=== PATIENT | female | born 1985 | race Caucasian/White ===

== ENCOUNTER 2018-08-21 09:44 | Inpatient (IN) | payer MEDICAID ==
[2018-08-21] MEDS ORDERED: RINGERS SOLUTION,LACTATED 300 ML IV ONE (10:25)
[2018-08-21] MEDS ORDERED: DINOPROSTONE 10 MG VAGINAL INSERT.SR PV PRN (10:25)
[2018-08-21] MEDS ORDERED: OXYTOCIN/NORMAL SALINE 20 UNIT/1,000 ML RTUINJ IV PRN (10:25)
[2018-08-21 10:30] LABS: APPEARANCE,URINE CLOUDY; BILIRUBIN,URINE NEGATIVE (NEGATIVE); COLOR,URINE AMBER; GLUCOSE, URINE NEGATIVE (NEGATIVE); KETONES,URINE NEGATIVE (NEGATIVE); LEUKOCYTE ESTERASE,URINE TRACE (NEGATIVE); NITRITE,URINE NEGATIVE (NEGATIVE); PROTEIN,URINE 100 mg/dL (NEGATIVE); URINE SPECIFIC GRAVITY 1.025
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
[2018-08-21] MEDS ORDERED: DINOPROSTONE 10 MG VAGINAL INSERT.SR ONE ×2 (10:51→15:35)
[2018-08-21 11:38] LABS: URINE AMPHETAMINES SCREEN NEGATIVE; URINE BARBITURATES SCREEN NEGATIVE; URINE BENZODIAZEPINES SCREEN NEGATIVE; URINE COCAINE SCREEN NEGATIVE; URINE MARIJUANA (THC) SCREEN NEGATIVE; URINE METHADONE SCREEN NEGATIVE; URINE PHENCYCLIDINE SCREEN NEGATIVE
[2018-08-21 12:11] LABS: ABSOLUTE EOSINOPHILS # (AUTO) 0.1 10^3/uL (0.0-0.6); ABSOLUTE LYMPHOCYTES (AUTO) 1.3 10^3/uL (0.5-4.7); ABSOLUTE MONOCYTES (AUTO) 0.9 10^3/uL (0.1-1.4); BASOPHILS % (AUTO) 0.2 % (0-2); EOSINOPHILS % (AUTO) 0.8 % (0-6); HEMATOCRIT 35.3 % (36.0-47.0); HEMOGLOBIN 11.3 g/dL (12.0-15.5); LYMPHOCYTES % (AUTO) 9.1 % (13-45); MEAN CORPUSCULAR HGB CONC 32.1 g/dL (32.0-36.0); MEAN CORPUSCULAR VOLUME 78 fl (80-97); MONOCYTES % (AUTO) 6.5 % (3-13); PLATELET COUNT 323 10^3/uL (150-450); RED BLOOD COUNT 4.53 10^6/uL (3.72-5.28); RED CELL DISTRIBUTION WIDTH 15.9 % (11.5-14.0); SEGMENTED NEUTROPHILS % (AUTO) 83.4 % (42-78); TOTAL CELLS COUNTED % (AUTO) 100 %; WHITE BLOOD COUNT 14.4 10^3/uL (4.0-10.5)
[2018-08-21] MEDS ORDERED: DINOPROSTONE 10 MG VAGINAL INSERT.SR PV ONE (15:29)
[2018-08-21] MEDS ORDERED: PENICILLIN G-K 5 MILLION UNIT VIAL ONE ×2 (15:34→20:37)
[2018-08-21] MEDS: RINGERS SOLUTION,LACTATED 1,000 ML IV PRN (16:18)
[2018-08-21] MEDS ORDERED: PENICILLIN G-K 5 MILLION UNIT VIAL IV ONE (21:14)
[2018-08-21] MEDS: PENICILLIN G-K 5 MILLION UNIT VIAL IV SCH (21:20)
[2018-08-21] MEDS ORDERED: MISOPROSTOL 0.1 MG TABLET PO ONE (22:17)
[2018-08-21] MEDS ORDERED: MISOPROSTOL 0.1 MG TABLET PV ONE (22:19)
[2018-08-22] MEDS ORDERED: MISOPROSTOL 0.1 MG TABLET ONE ×2 (00:17→05:53)
[2018-08-22] MEDS ORDERED: PENICILLIN G-K 5 MILLION UNIT VIAL ONE ×2 (00:17→05:03)
[2018-08-22] MEDS: PENICILLIN G-K 5 MILLION UNIT VIAL IV SCH ×4 (00:45→14:40)
[2018-08-22] MEDS ORDERED: MISOPROSTOL 0.1 MG TABLET PO ONE (06:00)
[2018-08-22] MEDS ORDERED: MISOPROSTOL 0.1 MG TABLET PV ONE (06:00)
[2018-08-22] MEDS ORDERED: PHENYLEPHRINE HCL INJ/PF 10 MG/1 ML SDV ONE (13:26)
[2018-08-22] MEDS ORDERED: AZITHROMYCIN INJ 500 MG VIAL IV ONE (14:25)
[2018-08-22 18:49] LABS: ABSOLUTE EOSINOPHILS # (AUTO) 0.2 10^3/uL (0.0-0.6); ABSOLUTE LYMPHOCYTES (AUTO) 1.3 10^3/uL (0.5-4.7); ABSOLUTE NEUT (AUTO) 12.6 10^3/uL (1.7-8.2); BASOPHILS % (AUTO) 0.2 % (0-2); HEMATOCRIT 34.7 % (36.0-47.0); HEMOGLOBIN 11.2 g/dL (12.0-15.5); LYMPHOCYTES % (AUTO) 8.5 % (13-45); MEAN CORPUSCULAR HEMOGLOBIN 25.2 pg (27.0-33.4); MEAN CORPUSCULAR HGB CONC 32.3 g/dL (32.0-36.0); MEAN CORPUSCULAR VOLUME 78 fl (80-97); MONOCYTES % (AUTO) 6.6 % (3-13); PLATELET COUNT 313 10^3/uL (150-450); RED BLOOD COUNT 4.44 10^6/uL (3.72-5.28); SEGMENTED NEUTROPHILS % (AUTO) 83.7 % (42-78); TOTAL CELLS COUNTED % (AUTO) 100 %; WHITE BLOOD COUNT 15.1 10^3/uL (4.0-10.5)
[2018-08-22] MEDS ORDERED: CEFAZOLIN 2 GM/D5W RTU 2 GM/50 ML RTUPB IV ONE (19:51)
[2018-08-22] MEDS ORDERED: CEFAZOLIN 1 GM/D5W RTU 1 GM/50 ML RTUPB IV ONE (19:51)
[2018-08-22] MEDS ORDERED: CITRIC ACID/SODIUM CITRATE ORAL SOLN 15 ML UDCUP ONE (19:51)
[2018-08-22] MEDS ORDERED: OXYTOCIN 10 UNIT/ML VIAL ONE (19:59)
[2018-08-22] MEDS ORDERED: PROPOFOL INJ 200 MG/20 ML VIAL IV ONE (19:59)
[2018-08-22] MEDS ORDERED: FENTANYL CITRATE INJ/PF 100 MCG/2 ML AMPUL ONE ×2 (20:00→23:17)
[2018-08-22] MEDS ORDERED: ACETAMINOPHEN 1,000 MG/100 ML RTUPB IV ONE (20:00)
[2018-08-22] MEDS ORDERED: ONDANSETRON HCL INJ/PF 4 MG/2 ML SDV ONE (20:00)
[2018-08-22] MEDS ORDERED: DEXAMETHASONE SOD PHOSPHATE INJ 4 MG/1 ML VIAL ONE (20:00)
[2018-08-22] MEDS ORDERED: METHYLERGONOVINE MALEATE INJ/PF 0.2 MG/1 ML AMPULE ONE (20:00)
[2018-08-22] MEDS ORDERED: MIDAZOLAM 2 MG/2 ML INJ ONE (20:00)
[2018-08-22] MEDS ORDERED: EPINEPHRINE INJ/PF 1 MG/1 ML AMPULE ONE (20:01)
[2018-08-22] MEDS ORDERED: EPHEDRINE SULFATE INJ 50 MG/1 ML AMPULE ONE (20:09)
[2018-08-22] MEDS ORDERED: KETOROLAC TROMETHAMINE 60 MG/2 ML SDV ONE (20:13)
[2018-08-22] MEDS ORDERED: FENTANYL CITRATE INJ/PF 100 MCG/2 ML AMPUL IV PRN ×3 (20:57)
[2018-08-22] MEDS ORDERED: OXYCODONE-ACETAMINOPHEN 5-325 MG TABLET PO PRN ×3 (20:57→21:31)
[2018-08-22] MEDS ORDERED: ONDANSETRON HCL INJ/PF 4 MG/2 ML SDV IV PRN (20:57)
[2018-08-22] MEDS ORDERED: PROMETHAZINE HCL INJ 25 MG/1 ML VIAL IV PRN ×3 (20:57→21:31)
[2018-08-22] MEDS ORDERED: MEPERIDINE HCL/PF INJ 25 MG/1 ML DISP.SYRIN IV PRN (20:57)
[2018-08-22] MEDS ORDERED: DIPHENHYDRAMINE HCL 50 MG/ML VIAL IV PRN (20:57)
[2018-08-22] MEDS ORDERED: MORPHINE SULFATE 10 MG/ML INJ IV PRN (20:57)
[2018-08-22] MEDS ORDERED: DIPH/PERTUSS(ACELL)/TETANUS VAC/PF 0.5 ML SYR (>=10YO) IM PRN (21:31)
[2018-08-22] MEDS ORDERED: HYDROMORPHONE HCL INJ/PF 2 MG/ML AMPULE IV PRN (21:31)
[2018-08-22] MEDS ORDERED: MEASLES,MUMPS&RUBELLA VACC/PF 0.5 ML VIAL SUBCUT PRN (21:31)
[2018-08-22] MEDS ORDERED: OXYTOCIN/NORMAL SALINE 20 UNIT/1,000 ML RTUINJ IV PRN (21:31)
[2018-08-22] MEDS ORDERED: SIMETHICONE 80 MG TAB.CHEW PO PRN (21:31)
[2018-08-22] MEDS ORDERED: ACETAMINOPHEN 325 MG TABLET PO PRN (21:31)
[2018-08-22] MEDS ORDERED: OXYTOCIN/NORMAL SALINE 20 UNIT/1,000 ML RTUINJ ONE (21:36)
--- NOTE | 2018-08-22 21:42 | PDOC DELIVERY SUMMARY ---
Delivery Summary - Maternal Hx : I BERTA: 08/15/18 Gestational Age: 41.0 Risk Factors: Other - Morbid obesity Ruptured Membranes: SROM Time of Rupture: 07:00 - August 21 Fluids: Clear - Delivery Labor: Augmentation Presentation: Vertex Heart Rate Monitoring: Internally Uterine Contraction Monitoring: Internal Support Person Present: Yes Location: LD : Primary Placenta: Within Normal Limits Placenta Description: Normal-appearing Nuchal Cord: No Delivery of Placenta Date: 08/22/18 Estimated Blood Loss: 600 ml - Medications Type of Anesthesia:: GA - Delivery Medications Delivery Meds: Methergine 0.2mg IM - Delivery Personnel MD: LETHA MOLINA
--- NOTE | 2018-08-22 21:50 | Operative Report ---
Operative Report DATE OF SURGERY: 08/22/18 PREOPERATIVE DIAGNOSIS: 1. Intrauterine at 41-0/7 weeks. 2. Morbid obesity. 3. Premature rupture of membranes (prolonged). 4. Failure to progress. 5. GBS positive. 6. Rh+. 7. Rubella nonimmune. 8. Asthma. 9. Tobacco use POSTOPERATIVE DIAGNOSIS: Same OPERATION: Primary low transverse section SURGEON: LETHA PLAAT ANESTHESIA: Spinal TISSUE REMOVED OR ALTERED: Placenta COMPLICATIONS: None ESTIMATED BLOOD LOSS: 600 ml INTRAOPERATIVE FINDINGS: Male infant in the cephalic position; normal uterus, bilateral tubes and ovaries PROCEDURE: The patient was taken to the operating room where spinal anesthesia was obtained and found to be adequate. She was then prepped and draped in the normal sterile fashion and placed in the dorsal supine position with a leftward tilt. A Pfannenstiel skin incision was then made and carried through to the underlying layers of the fascia with the scalpel. The fascia was incised in the midline and the incision extended laterally with the Ro scissors. The superior aspect of the fascial incision was then grasped with Evelia clamps elevated and the underlying rectus muscles dissected off both bluntly and sharply. Attention was then turned to the inferior aspect of the fascial incision which in a similar fashion was grasped, tented up with Evelia clamps, and the rectus muscles dissected off both bluntly and sharply. The rectus muscles were then in the midline and the peritoneum was identified and entered both sharply and bluntly. The peritoneal incision was then extended superiorly and inferiorly with good visualization of the bladder. The bladder blade was inserted and the vesicouterine peritoneum identified grasped with Finnish pickups and entered sharply with the Metzenbaum scissors. This incision was then extended laterally with the Metzenbaum scissors and a bladder flap created digitally. The bladder blade was then reinserted and the lower uterine segment incised in a transverse fashion with the scalpel. The uterine incision was then extended bluntly and with the bandage scissors. The bladder blade was removed and the 's head was delivered from cephalic presentation atraumatically. The nose and mouth were suctioned and the cord doubly clamped and cut. The infant was handed off to waiting pediatricians. The placenta was then delivered manually and the uterus exteriorized and cleared of all clots and debris. The uterine incision was then repaired with 0 Vicryl in a running locked fashion. 0-Chromic was used to obtain hemostasis via imbrication of the initial layer. The bladder flap was then repaired with 3-0 Vicryl in a running fashion. The uterus was returned to the patient's abdomen and Interceed was placed overlying the uterine incision, as well as a piece placed vertically on the anterior surface of the uterus, to prevent adhesions. The gutters were cleared of all clots and debris. All operative sites were noted to be hemostatic. The fascia was reapproximated with 0 PDS in a running fashion from each lateral edge to the midline. The subcutaneous fat layer was then closed in an interrupted fashion with 3-0 vicryl. The skin was closed with 4-0 Monocryl in a running, subcuticular fashion.
[2018-08-22] MEDS ORDERED: PROMETHAZINE HCL INJ 25 MG/1 ML VIAL ONE (21:55)
[2018-08-22] MEDS: HEPARIN SOD (PORCINE) 5,000 UNIT/ML 1 ML SYRINGE SUBCUT SCH (22:02)
[2018-08-22] MEDS ORDERED: KETOROLAC TROMETHAMINE INJ/PF 30 MG/1 ML SDV ONE (22:22)
[2018-08-22] MEDS: KETOROLAC TROMETHAMINE INJ/PF 30 MG/1 ML SDV IV SCH (22:24)
--- NOTE | 2018-08-22 22:52 | Delivery Summary ---
Del Sum A-C Datetime Report Generated by CPN: 08/22/2018 22:52 DELIVERY PERSONNEL DELIVERY PERSONNEL: [id number] Delivery Doctor:: Mary Stearns MD Anesthesiologist:: Chad Yu MD COMPUTER SCIENCE INSTRUCTOR:: Christiana Mcqueen CRNA Labor and Delivery Nurse:: Veena Yan RNchair and couch maker Nurse:: Simona Galvan RN Clinical Esthetician:: Veena Yan RN Neonatal Nurse Practitioner:: CHERIE Lugo Nursery Nurse:: Angeline Chou RN MSN Control Chemist/GANG BORE OPERATOR: Isa Menendez, ST Control Chemist/GANG BORE OPERATOR: Evin Hernandez MATERNAL INFORMATION Delivery Anesthesia: Spinal Medications After Delivery: Pitocin Drip 20 Units/1000ml NSS Maternal Complications: None Provider Comments: C/S called for failure to progress and prlonged ROM. Infant born with strong cry with stimulation. Bulb suctioned for moderate amount of thick clear secretions. pink and well perfused with no respiratory distress seen. LABOR SUMMARY EDC: 08/15/2018 00:00 No. Babies in Womb: 1 Attempted: No LABOR INFORMATION Reason for Induction: Premature Rupture of Membranes Cervical Ripening Agents: Cervidil; Cytotec @ Oxytocin: Induction Group B Beta Strep: pos Antibiotics # of Doses: 5 Antibiotics Time of Last Dose: 1314 Name of Antibiotic Given: PCN Steroids Given: None Reason Steroids Not Administered: Not Applicable MEMBRANES Membranes Rupture Method: Spontaneous Rupture of Membranes: 08/21/2018 07:00 Length of Rupture (hr): 37.77 Amniotic Fluid Color: Clear Amniotic Fluid Amount: Moderate Amniotic Fluid Odor: Normal STAGES OF LABOR Stage 3 hr: 0 Stage 3 min: 3 VAGINAL DELIVERY Episiotomy: None Laceration #1: None Laceration Extension #1: N/A Sponge Count Correct: N/A Sharps Count Correct: N/A CSECTION DELIVERY Primary Indication: Failed Induction CSection Urgency: Non-Scheduled CSection Incidence: Primary Labor: No Labor Elective: Nonelective CSection Incision: Lower Uterine Transverse BABY A INFORMATION Delivery Date/Time: 08/22/2018 20:46 Method of Delivery: Born in Route : No : N/A Forceps: N/A Vacuum Extraction: N/A Shoulder Dystocia : No PRESENTATION/POSITION BABY A Presentation: Cephalic Cephalic Presentation: Vertex Breech Presentation: N/A PLACENTA INFORMATION BABY A Placenta Delivery Time : 08/22/2018 20:49 Placenta Method of Delivery: Manual Removal Placenta Status: Delivered SCORES BABY A Heart Rate 1 min: >100 bpm Resp Effort 1 min: Good Cry Reflex Irritability 1 min: Cough or Sneeze or Pulls Away Muscle Tone 1 min: Active Motion Color 1 min: Blue/Pale Resuscitation Effort 1 min: Tactile Stimulation SCORE 1 MIN: 8 Heart Rate 5 min: >100 bpm Resp Effort 5 min: Good Cry Reflex Irritability 5 min: Cough or Sneeze or Pulls Away Muscle Tone 5 min: Active Motion Color 5 min: Body [place], Extremities Blue SCORE 5 MIN: 9 INFANT INFORMATION BABY A Gestational Age at Delivery: 41.0 Gestational Status: Late Term- 41- 41.6 Weeks Outcome : Liveborn Infant Condition : Stable Infant Sex: Male IDENTIFICATION BABY A Infant Verification Date/Time: 08/22/2018 21:07 ID Band Number: [id number] Mother's Name Verified: Yes RN Verifying Infant: Chou RN/ [place] RN WEIGHT/LENGTH BABY A Birthweight (gm): 3425 Infant Weight (lb): 7 Infant Weight (oz): 9 CORD INFORMATION BABY A No. Cord Vessels: 3 Nuchal Cord : N/A Cord Blood Taken: Yes-For Eval (Mom's Blood Type - or O+) Infant Suction: Mouth; Nose ASSESSMENT BABY A Complications: None Physical Findings at Delivery: Within Normal Limits; Caput Succedaneum; Molding of the Head Infant Respirations: Appears Normal Skin to Skin: Yes Multimedia Services Coordinator/ALS Called : Yes Transferred To: [facility] BABY B INFORMATION : N/A
[2018-08-23] MEDS: IBUPROFEN 800 MG TABLET PO SCH ×4 (00:11→17:52)
[2018-08-23] MEDS: KETOROLAC TROMETHAMINE INJ/PF 30 MG/1 ML SDV IV SCH ×2 (05:57→14:19)
[2018-08-23] MEDS: OXYCODONE-ACETAMINOPHEN 5-325 MG TABLET PO PRN ×3 (07:41→22:46)
[2018-08-23] MEDS: RINGERS SOLUTION,LACTATED 1,000 ML IV PRN (07:47)
[2018-08-23 08:05] LABS: HEMATOCRIT 27.3 % (36.0-47.0); MEAN CORPUSCULAR HEMOGLOBIN 25.3 pg (27.0-33.4); MEAN CORPUSCULAR HGB CONC 32.1 g/dL (32.0-36.0); MEAN CORPUSCULAR VOLUME 79 fl (80-97); PLATELET COUNT 234 10^3/uL (150-450); RED BLOOD COUNT 3.47 10^6/uL (3.72-5.28); RED CELL DISTRIBUTION WIDTH 16.2 % (11.5-14.0); WHITE BLOOD COUNT 14.4 10^3/uL (4.0-10.5)
[2018-08-23 08:09] LABS: HEMOGLOBIN 8.8 g/dL (12.0-15.5)
[2018-08-23] MEDS: HEPARIN SOD (PORCINE) 5,000 UNIT/ML 1 ML SYRINGE SUBCUT SCH ×2 (10:39→22:47)
[2018-08-23] MEDS: PRENATAL VITAMIN W DHA CAPSULE PO SCH (10:39)
[2018-08-23] MEDS: DOCUSATE SODIUM 100 MG CAPSULE PO SCH ×2 (10:39→17:59)
--- NOTE | 2018-08-23 16:40 | PDOC PROGRESS REPORT ---
Subjective-OB Progress Note for:: 08/23/18 Subjective: reports bleeding slowing, pain controlled with current meds, denies needs, reports + passing gas Physical Exam (OB) Vital Signs: Temp Pulse Resp BP Pulse Ox 98.0 F 95 15 130/75 H 100 08/23/18 12:28 08/23/18 12:28 08/23/18 12:28 08/23/18 12:28 08/23/18 12:28 Intake & Output 08/22/18 08/23/18 08/24/18 06:59 06:59 06:59 Intake Total 1000 400 Output Total 600 Balance 1000 -200 Weight 147.1 kg 147 kg - Dressing Removed: Yes Incision: Dressing - op site, Well Approximated - Abdomen Description: Tender Fundal Description: Firm Fundal Height: u/u - u/2 - Abdominal Inspection: Normal Distension: No distension - Extremities Lower extremities: Debbie's sign - neg Calf: Normal, Nontender Objective-Diagnostic Laboratory: 08/23/18 07:37 08/22/18 08/23/18 17:43 07:37 WBC 15.1 H 14.4 H RBC 4.44 3.47 L Hgb 11.2 L 8.8 L D Hct 34.7 L 27.3 L MCV 78 L 79 L MCH 25.2 L 25.3 L MCHC 32.3 32.1 RDW 16.0 H 16.2 H Plt Count 313 234 Seg Neutrophils % 83.7 H Lymphocytes % 8.5 L Monocytes % 6.6 Eosinophils % 1.0 Basophils % 0.2 Absolute Neutrophils 12.6 H Absolute Lymphocytes 1.3 Absolute Monocytes 1.0 Absolute Eosinophils 0.2 Absolute Basophils 0.0 Assessment and Plan(PN) - Assessment and Plan (1) S/P primary low transverse Is this a current diagnosis for this admission?: Yes (2) Prolonged rupture of membranes, greater than 24 hours, delivered Is this a current diagnosis for this admission?: Yes - Time Spent with Patient Time with patient: Less than 15 minutes Medications reviewed and adjusted accordingly: Yes - Disposition Anticipated Discharge: Home Within: within 48 hours
[2018-08-23] MEDS: PENICILLIN G-K 5 MILLION UNIT VIAL IV SCH (19:07)
[2018-08-24] MEDS: IBUPROFEN 800 MG TABLET PO SCH ×5 (00:49→23:45)
[2018-08-24] MEDS: OXYCODONE-ACETAMINOPHEN 5-325 MG TABLET PO PRN (05:07)
[2018-08-24] MEDS: PRENATAL VITAMIN W DHA CAPSULE PO SCH (09:08)
[2018-08-24] MEDS: DOCUSATE SODIUM 100 MG CAPSULE PO SCH ×2 (09:08→17:37)
[2018-08-24] MEDS: HEPARIN SOD (PORCINE) 5,000 UNIT/ML 1 ML SYRINGE SUBCUT SCH ×2 (09:08→21:36)
--- NOTE | 2018-08-24 13:06 | PDOC PROGRESS REPORT ---
Subjective-OB Progress Note for:: 08/24/18 Subjective: Pt doing well, feeling anxious, baby not being discharged today. She reports +flatus, reg diet and voiding without difficulty. Ambulatory. Physical Exam (OB) Vital Signs: Temp Pulse Resp BP Pulse Ox 98.1 F 115 H 20 132/88 H 100 08/24/18 08:48 08/24/18 08:48 08/24/18 08:48 08/24/18 08:48 08/24/18 08:48 Intake & Output 08/23/18 08/24/18 08/25/18 06:59 06:59 06:59 Intake Total 1950 Output Total 600 Balance 1350 Weight 147 kg - PIH/Pre-Eclampsia Clonus: Negative Headache: Absent Epigastric Pain: No Visual Changes: No - Dressing Removed: Yes - OPSITE not occlusive, remove, incision well approximated Closure Type: Sutures - Lochia Lochia Amount: Scant < 10 ml Lochia Color: Rubra/Red - Abdomen Description: Tender, Soft, Round Hernia Present: No Fundal Description: Firm, Midline Fundal Height: u/u - u/2 Objective-Diagnostic Laboratory: 08/23/18 07:37 Assessment and Plan(PN) - Assessment and Plan (1) Morbid obesity with BMI of 50.0-59.9, adult Is this a current diagnosis for this admission?: Yes (2) S/P primary low transverse Is this a current diagnosis for this admission?: Yes - Time Spent with Patient Time with patient: Less than 15 minutes Medications reviewed and adjusted accordingly: Yes - Disposition Anticipated Discharge: Home Within: within 24 hours
[2018-08-25] MEDS: IBUPROFEN 800 MG TABLET PO SCH ×2 (05:18→11:32)
--- NOTE | 2018-08-25 08:26 | PDOC DISCHARGE SUMMARY ---
Final Diagnosis Discharge Date: 08/25/18 - Final Diagnosis (1) Morbid obesity with BMI of 50.0-59.9, adult Is this a current diagnosis for this admission?: Yes (2) S/P primary low transverse Is this a current diagnosis for this admission?: Yes Discharge Data - Discharge Medication Home Medications: Vit,Calc76/Iron/Folic [Prenatabs Rx Tablet] 1 each PO DAILY 08/21/18 Reason(s) for Admission: PROM Procedures: NST, Management of Obstetric Complications Intrapartum Procedure(s): : Low Cervical, Transverse - Diagnosis Test Laboratory: Temp Pulse Resp BP Pulse Ox 98.0 F 98 18 104/67 100 08/25/18 05:01 08/25/18 05:01 08/25/18 05:01 08/25/18 05:01 08/25/18 05:01 08/21/18 08/21/18 08/22/18 10:00 11:45 17:43 RBC 4.53 4.44 Hgb 11.3 L 11.2 L Hct 35.3 L 34.7 L Urine Opiates Screen NEGATIVE 08/23/18 07:37 RBC 3.47 L Hgb 8.8 L D Hct 27.3 L Urine Opiates Screen - Discharge information/Instructions Discharge Activity: Activity As Tolerated, Pelvic Rest, No tub bath Discharge Diet: Regular Disposition: HOME, SELF-CARE Follow up with: [facility] in: 4, 5, Days
[2018-08-25] MEDS: HEPARIN SOD (PORCINE) 5,000 UNIT/ML 1 ML SYRINGE SUBCUT SCH (09:19)
[2018-08-25] MEDS: PRENATAL VITAMIN W DHA CAPSULE PO SCH (09:20)
[2018-08-25] MEDS: DOCUSATE SODIUM 100 MG CAPSULE PO SCH (09:20)
[2018-08-25 12:26] VITALS: BP 145/90
== END 2018-08-25 17:02 | disposition home or self-care (01) | DRG 788 ==
LOC: LC 09:44 → LR 10:23 → 2S 08-22 23:28
PROVIDERS: ADMIT Obstetrics & Gynecology; ATTEND Obstetrics & Gynecology
PROC: 10D00Z1 Extraction of Products of Conception, Low, Open Approach (ICD-10-PCS; principal; 2018-08-22)
DX: O62.2 Other uterine inertia (principal); O48.0 Post-term pregnancy; O42.12 Full-term premature rupture of membranes, onset of labor more than 24 hours following rupture; E66.01 Morbid (severe) obesity due to excess calories; O99.214 Obesity complicating childbirth; O99.824 Streptococcus B carrier state complicating childbirth; F41.9 Anxiety disorder, unspecified; O99.344 Other mental disorders complicating childbirth; Z37.0 Single live birth; Z3A.41 41 weeks gestation of pregnancy; Z87.891 Personal history of nicotine dependence
CPT/HCPCS: 1961; 36415; 80307; 81005; 84112; 85025; 85027; 86592; 86850; 86900; 86901; 94799; J0131; J0171; J0456; J0690; J1100; J1170; J1644; J1885; J2210; J2250; J2370; J2405; J2540; J2550; J2590; J2704; J3010; J3490; J7120

== ENCOUNTER 2019-01-17 18:40 | Emergency (ER) | payer MEDICAID, OTHER ==
--- NOTE | 2019-01-17 20:03 | RADIOLOGY REPORT (SQ) ---
EXAM DESCRIPTION: FOOT LEFT COMPLETE COMPLETED DATE/TIME: 01/17/2019 7:41 pm REASON FOR STUDY: L dorsal foot pain COMPARISON: None. NUMBER OF VIEWS: Three views. TECHNIQUE: AP, lateral and oblique radiographic images acquired of the left foot. LIMITATIONS: None. FINDINGS: MINERALIZATION: Normal. BONES: No acute fracture or dislocation. No worrisome bone lesions. JOINTS: No effusions. SOFT TISSUES: Soft tissue swelling. OTHER: No other significant finding. IMPRESSION: Soft tissue swelling. No fracture. TECHNICAL DOCUMENTATION: JOB ID: [id number] [employer]- All Rights Reserved Reading location - IP/workstation name: [email or web address]
[2019-01-17] MEDS ORDERED: ACETAMINOPHEN 325 MG TABLET PO ONE (20:16)
[2019-01-17] MEDS ORDERED: IBUPROFEN 600 MG TABLET PO ONE (20:16)
--- NOTE | 2019-01-17 20:18 | ER Document Report ---
HPI - HPI Time Seen by Provider: 01/17/19 19:21 Pain Level: 3 Notes: Patient is a 33-year-old female presenting to the emergency department with chief complaint of left foot pain. Patient reports several days ago she was at work when some boxes fell landing on to the top of her foot. She denies any treatment prior to arrival. - REPRODUCTIVE Reproductive: DENIES: : Past Medical History - General Information source: Patient - Social History Smoking Status: Current Some Day Smoker Frequency of alcohol use: None Drug Abuse: None Family History: Reviewed & Not Pertinent Patient has suicidal ideation: No Patient has homicidal ideation: No - Past Medical History Cardiac Medical History: Denies: Hx Hypertension, Hx Pulmonary Embolism, Hx Heart Murmur Pulmonary Medical History: Reports: Hx Asthma Denies: Hx Sleep Apnea, Hx Tuberculosis Neurological Medical History: Denies: Hx Cerebrovascular Accident, Hx Seizures Endocrine Medical History: Denies: Hx Hyperthyroidism, Hx Hypothyroidism Renal/ Medical History: Denies: Hx Kidney Stones, Hx Ovarian Cysts, Hx Pelvic Inflammatory Disease Malignancy Medical History: Denies: Hx Breast Cancer, Hx Cervical Cancer, Hx Ovarian Cancer GI Medical History: Denies: Hx Gastroesophageal Reflux Disease, Hx Hiatal Hernia, Hx Ulcer Musculoskeletal Medical History: Reports Hx Fibromyalgia Psychiatric Medical History: Reports: Hx Depression, Hx Post Traumatic Stress Disorder Denies: Hx Bipolar Disorder, Hx Schizophrenia Traumatic Medical History: Denies: Hx Fractures Infectious Medical History: Denies: Hx HIV Vertical Provider Document - CONSTITUTIONAL Notes: PHYSICAL EXAMINATION: GENERAL: Well-appearing, well-nourished and in no acute distress. HEAD: Atraumatic, normocephalic. EYES: Pupils equal round extraocular movements intact, conjunctiva are normal. ENT: Nares patent NECK: Normal range of motion LUNGS: No respiratory distress Musculoskeletal: Normal range of motion, strong dorsalis pedis pulses bilaterally, no obvious erythema or ecchymosis, small amount of swelling noted to dorsal surface of left foot. NEUROLOGICAL: Normal speech, normal gait. PSYCH: Normal mood, normal affect. SKIN: Warm, Dry, normal turgor, no rashes or lesions noted. - INFECTION CONTROL TRAVEL OUTSIDE OF THE [place] IN LAST 30 DAYS: No Course - Re-evaluation Re-evalutation: Foot X-Ray 01/17/19 19:29 IMPRESSION: Soft tissue swelling. No fracture. - Vital Signs Vital signs: Temp Pulse Resp BP Pulse Ox 97.6 F 90 18 139/86 H 100 01/17/19 18:52 01/17/19 18:52 01/17/19 18:52 01/17/19 18:52 01/17/19 18:52 Procedures - Immobilization Left foot Pre-Proc Neuro Vasc Exam: Normal Immobilizer type: David wrap, Crutches Performed by: PCT Post-Proc Neuro Vasc Exam: Normal Alignment checked and good: No Discharge - Discharge Clinical Impression: Foot contusion Qualifiers: Encounter type: initial encounter Laterality: left Qualified Code(s): S90.32XA - Contusion of left foot, initial encounter Condition: Stable Disposition: HOME, SELF-CARE Additional Instructions: Contusion Your injury has resulted in a contusion -- a crushing of the deep tissues. No injury to important structures was detected during the physician's exam. Contusions vary in the amount of pain they cause, and in the length of time required for healing. Typically, the area will become bruised, and will remain painful to touch for two or three weeks. However, most patients are back to working and playing within a few days. After the initial period of rest and cold-packs, your symptoms (together with the doctor's recommendations) will determine how rapidly you can get back to full activity. Usually this means "do what feels okay, but don't do things that hurt." If re-examination was recommended, it's important to follow up as instructed. Call the doctor or return any time if pain increases, if swelling becomes severe, if you develop numbness or weakness in an injured extremity, or if any other alarming symptoms occur. Ice & Elevation Apply ice packs frequently against the painful area. Many different schedules are recommended, such as "20 minutes on, 20 minutes off" or "one hour ice, two hours rest." If you need to work, you may need to go longer between ic e treatments. You should plan to have the area ice packed AT LEAST one-fourth of the time. The ice should be applied over the wrap, tape, or splint, or over a layer of cloth -- not directly against the skin. Some ice bags have a built-in cloth and can be put directly on the skin. Your injured part should be elevated as much as possible over the next 48 hours. Try to keep the injury above the level of the heart. Avoid use of the injured area. Elevation and rest will decrease the swelling. Ibuprofen Ibuprofen is an excellent, safe drug for pain control. In addition, it has potent antiinflammatory effects which are beneficial, especially in the treatment of injuries, arthritis, or tendonitis. It's best to take ibuprofen with food. Persons with ulcer disease or allergy to aspirin should notify their physician of this before taking ibuprofen. Take the medication exactly as prescribed. Don't take additional doses unless instructed to do so by your doctor. If you develop wheezing, shortness of breath, hives, faintness, stomach pain, vomiting, or dark black stools, return for re-evaluation at once. The x-rays were negative for any fracture or dislocation. Please take ibuprofen [id number] as directed to help with pain and inflammation. Forms: Return to Work
[2019-01-17 20:45] VITALS: BP 130/87
== END 2019-01-17 20:45 | disposition home or self-care (01) ==
LOC: ER 18:40
DX: S90.32XA Contusion of left foot, initial encounter (principal); M79.672 Pain in left foot; W20.8XXA Other cause of strike by thrown, projected or falling object, initial encounter; Y99.0 Civilian activity done for income or pay; F17.200 Nicotine dependence, unspecified, uncomplicated
CPT/HCPCS: 99283

== ENCOUNTER 2020-01-20 20:29 | Emergency (ER) | payer SELFPAY ==
--- NOTE | 2020-01-20 21:47 | ER Document Report ---
ED Medical Screen (RME) - General Chief Complaint: Abdominal Pain Stated Complaint: RIGHT LOWER ABDOMINAL PAIN Time Seen by Provider: 01/20/20 21:44 TRAVEL OUTSIDE OF THE [place] IN LAST 30 DAYS: No - HPI Notes: 01/20/20 21:45 34-year-old female to the emergency department with complaints of right lower quadrant abdominal pain that began yesterday but has gotten significantly worse today. She admits to nausea and vomiting with the. She states that she has had a before but still has her appendix. She states that when she was at the [employer] about a week ago that she had some tenderness in her right ovarian region. She has never been diagnosed with an ovarian cyst before. She denies any fevers or chills. She denies any urinary complaints. Medical screening exam she does have tenderness to palpation in the right lower quadrant at McBurney's point. I performed a brief medical screening exam on the patient determined that the patient needs further evaluation and management by main side provider. I have placed initial orders to help expedite care. - Related Data Allergies/Adverse Reactions: No Known Allergies Allergy (Unverified 08/21/18 10:20) Past Medical History - Past Medical History Cardiac Medical History: Denies: Hx Hypertension, Hx Pulmonary Embolism, Hx Heart Murmur Pulmonary Medical History: Reports: Hx Asthma Denies: Hx Sleep Apnea, Hx Tuberculosis Neurological Medical History: Denies: Hx Cerebrovascular Accident, Hx Seizures Endocrine Medical History: Denies: Hx Hyperthyroidism, Hx Hypothyroidism Renal/ Medical History: Denies: Hx Kidney Stones, Hx Ovarian Cysts, Hx Pelvic Inflammatory Disease Malignancy Medical History: Denies: Hx Breast Cancer, Hx Cervical Cancer, Hx Ovarian Cancer GI Medical History: Denies: Hx Gastroesophageal Reflux Disease, Hx Hiatal Hernia, Hx Ulcer Musculoskeltal Medical History: Reports Hx Fibromyalgia Psychiatric Medical History: Reports: Hx Depression, Hx Post Traumatic Stress Disorder Denies: Hx Bipolar Disorder, Hx Schizophrenia Traumatic Medical History: Denies: Hx Fractures Infectious Medical History: Denies: Hx HIV Physical Exam - Vital signs Vitals: Temp Pulse Resp BP Pulse Ox 98.1 F 84 20 142/100 H 100 01/20/20 20:45 01/20/20 20:45 01/20/20 20:45 01/20/20 20:45 01/20/20 20:45 Course - Vital Signs Vital signs: Temp Pulse Resp BP Pulse Ox 98.1 F 84 20 142/100 H 100 01/20/20 20:45 01/20/20 20:45 01/20/20 20:45 01/20/20 20:45 01/20/20 20:45
[2020-01-20 23:19] LABS: ABSOLUTE BASOPHILS # (AUTO) 0.1 10^3/uL (0.0-0.2); ABSOLUTE EOSINOPHILS # (AUTO) 0.3 10^3/uL (0.0-0.6); ABSOLUTE LYMPHOCYTES (AUTO) 2.2 10^3/uL (0.5-4.7); ABSOLUTE MONOCYTES (AUTO) 0.6 10^3/uL (0.1-1.4); ABSOLUTE NEUT (AUTO) 8.4 10^3/uL (1.7-8.2); BASOPHILS % (AUTO) 0.8 % (0-2); EOSINOPHILS % (AUTO) 2.4 % (0-6); HEMATOCRIT 36.1 % (36.0-47.0); HEMOGLOBIN 11.7 g/dL (12.0-15.5); LYMPHOCYTES % (AUTO) 18.8 % (13-45); MEAN CORPUSCULAR HEMOGLOBIN 24.3 pg (27.0-33.4); MEAN CORPUSCULAR HGB CONC 32.5 g/dL (32.0-36.0); MEAN CORPUSCULAR VOLUME 75 fl (80-97); PLATELET COUNT 402 10^3/uL (150-450); RED BLOOD COUNT 4.84 10^6/uL (3.72-5.28); RED CELL DISTRIBUTION WIDTH 16.7 % (11.5-14.0); TOTAL CELLS COUNTED % (AUTO) 100 %; WHITE BLOOD COUNT 11.5 10^3/uL (4.0-10.5)
[2020-01-20 23:34] LABS: ALBUMIN 3.8 g/dL (3.5-5.0); ALKALINE PHOSPHATASE 85 U/L (38-126); ANION GAP 8 (5-19); ASPARTATE AMINO TRANSFERASE 18 U/L (14-36); BILIRUBIN,DIRECT 0.3 mg/dL (0.0-0.4); BILIRUBIN,TOTAL 0.4 mg/dL (0.2-1.3); BLOOD UREA NITROGEN 12 mg/dL (7-20); CALCIUM 9.2 mg/dL (8.4-10.2); CARBON DIOXIDE 28 mmol/L (22-30); CHLORIDE 102 mmol/L (98-107); GLUCOSE 93 mg/dL (75-110); POTASSIUM 4.6 mmol/L (3.6-5.0); TOTAL PROTEIN 6.8 g/dL (6.3-8.2)
[2020-01-20 23:41] LABS: APPEARANCE,URINE SLIGHTLY-CLOUDY; BILIRUBIN,URINE NEGATIVE (NEGATIVE); COLOR,URINE YELLOW; GLUCOSE, URINE NEGATIVE (NEGATIVE); KETONES,URINE NEGATIVE (NEGATIVE); PROTEIN,URINE NEGATIVE (NEGATIVE); URINE SPECIFIC GRAVITY 1.024; UROBILINOGEN,URINE NEGATIVE mg/dL (<2.0)
--- NOTE | 2020-01-21 01:13 | RADIOLOGY REPORT (SQ) ---
EXAM DESCRIPTION: CT abdomen and pelvis with contrast CLINICAL HISTORY: 34 years Female, RLQ abd pain. HCG NEG, CREAT 0.60 COMPARISON: None. TECHNIQUE: Axial images of the abdomen and pelvis were performed utilizing intravenous contrast, with sagittal and coronal reformatted images. This exam was performed according to our departmental dose-optimization program which includes use of Automated Exposure Control, adjustment of the mA and/or kV according to patient size and/or use of iterative reconstruction technique. FINDINGS: There is a normal-appearing retrocecal appendix. No evidence of bowel obstruction. There is a small hiatal hernia. There is no significant radiographic abnormality of the liver, spleen, pancreas, adrenal glands or kidneys. No free air or free fluid. There is a 6 mm solid pulmonary nodule at the medial right lung base. IMPRESSION: 6 mm right basilar pulmonary nodule. Follow-up CT at 6-12 months and then another follow-up CT at 18-24 months is recommended for further evaluation.
--- NOTE | 2020-01-21 04:30 | ER Document Report ---
ED General - General Chief Complaint: Abdominal Pain Stated Complaint: RIGHT LOWER ABDOMINAL PAIN Time Seen by Provider: 01/20/20 21:44 Primary Care Provider: SCOOBY BULL PA-C [Primary Care Provider] - Follow up as needed TRAVEL OUTSIDE OF THE [place] IN LAST 30 DAYS: No - HPI Notes: 34-year-old female presents with abdominal pain. Patient states that yesterday around 9:30 AM she started to develop right sided abdominal pain. The pain has persisted since yesterday and became worse today, eventually becoming unbearable. She states it feels like a cramping sensation, it spreads across her abdomen and there is a burning sensation. Pain is better with sitting. She has not tried any medications for pain. Patient states that she recently had a pelvic exam which was possible had some right ovarian tenderness, she denies any known history of ovarian cysts, she is not currently on control. - Related Data Allergies/Adverse Reactions: No Known Allergies Allergy (Unverified 08/21/18 10:20) Home Medications: levothyroxine, effexor, voltarin, albuterol. Past Medical History - General Information source: Patient - Social History Smoking Status: Current Some Day Smoker Family History: Reviewed & Not Pertinent - Past Medical History Cardiac Medical History: Denies: Hx Hypertension, Hx Pulmonary Embolism, Hx Heart Murmur Pulmonary Medical History: Reports: Hx Asthma Denies: Hx Sleep Apnea, Hx Tuberculosis Neurological Medical History: Denies: Hx Cerebrovascular Accident, Hx Seizures Endocrine Medical History: Denies: Hx Hyperthyroidism, Hx Hypothyroidism Renal/ Medical History: Denies: Hx Kidney Stones, Hx Ovarian Cysts, Hx Pelvic Inflammatory Disease Malignancy Medical History: Denies: Hx Breast Cancer, Hx Cervical Cancer, Hx Ovarian Cancer GI Medical History: Denies: Hx Gastroesophageal Reflux Disease, Hx Hiatal Hernia, Hx Ulcer Musculoskeletal Medical History: Reports Hx Fibromyalgia Psychiatric Medical History: Reports: Hx Depression, Hx Post Traumatic Stress Disorder Denies: Hx Bipolar Disorder, Hx Schizophrenia Traumatic Medical History: Denies: Hx Fractures Infectious Medical History: Denies: Hx HIV Past Surgical History: Reports: Hx Section Review of Systems - Review of Systems Constitutional: denies: Fever EENT: No symptoms reported Cardiovascular: No symptoms reported Respiratory: No symptoms reported Gastrointestinal: Abdominal pain. denies: Diarrhea, Nausea, Vomiting Genitourinary: denies: Burning Female Genitourinary: No symptoms reported, Vaginal discharge Musculoskeletal: Back pain Skin: No symptoms reported Hematologic/Lymphatic: No symptoms reported Neurological/Psychological: No symptoms reported Physical Exam - Vital signs Vitals: Temp Pulse Resp BP Pulse Ox 98.1 F 84 20 142/100 H 100 01/20/20 20:45 01/20/20 20:45 01/20/20 20:45 01/20/20 20:45 01/20/20 20:45 - General General appearance: Appears well, Alert In distress: None - HEENT Head: Normocephalic, Atraumatic Extraocular movements intact: Yes Pupils: PERRL - Respiratory Breath sounds: Normal - Cardiovascular Rhythm: Regular Heart sounds: Normal auscultation - Abdominal Inspection: Morbidly Obese Distension: No distension, Other Tenderness: Tender - Mild tenderness to right flank, right lateral abdomen and under right side of pannus. No: Guarding, Rebound - Back Back: CVA tenderness - Right - Extremities General upper extremity: Normal ROM General lower extremity: Normal ROM - Neurological Neuro grossly intact: Yes Cognition: Normal Orientation: AAOx4 - Psychological Associated symptoms: Normal affect - Skin Skin Temperature: Warm Course - Re-evaluation Re-evalutation: 34-year-old female with right-sided abdominal pain for the past 2 days, no other associated GI or pelvic/urinary symptoms. On exam she is well-appearing, she is obese. She has tenderness to essentially the right side of her abdomen, abdomen is overall nonperitoneal. Through the triage process she had labs and CT done. No significant leukocytosis. Chronic anemia. Electrolytes within normal limits. Creatinine within normal limits. No elevations of T bili, LFTs or lipase. Urine not overtly suggestive of UTI. CT is negative for appendicitis or other intra-abdominal pathology. Will obtain transvaginal ultrasound at this time to evaluate for cyst. Musculoskeletal etiology possibility as well. Toradol for pain. 01/21/20 06:08 Ultrasound did not demonstrate her ovaries. Had a low suspicion for ovarian torsion initially. Given the small amount of blood in urine, potentially she may have passed a kidney stone. This was discussed with patient. She was encouraged to follow-up with her PCP, she actually has an appointment this afte [place]. Encouraged to continue taking ibuprofen and fluid intake. Informed about pulmonary nodule. Return precautions given, stable time discharge. - Vital Signs Vital signs: Temp Pulse Resp BP Pulse Ox 98.1 F 83 20 132/85 H 100 01/21/20 04:31 01/21/20 04:31 01/21/20 04:31 01/21/20 04:31 01/21/20 04:31 - Laboratory Result Diagrams: 01/20/20 23:03 01/20/20 23:03 Laboratory results interpreted by me: 01/20/20 23:03 WBC 11.5 H Hgb 11.7 L MCV 75 L MCH 24.3 L RDW 16.7 H Absolute Neuts (auto) 8.4 H - Diagnostic Test Radiology reviewed: Image reviewed, Reports reviewed Discharge - Discharge Clinical Impression: Right sided abdominal pain Disposition: HOME, SELF-CARE Additional Instructions: Continue ibuprofen/Motrin for pain and be sure to drink plenty of fluids. Ple ase follow-up with your primary care doctor today as planned. There was a small pulmonary nodule seen on the CT on the right side, please have a repeat CT scan done in 6 months to assure that this is benign. Turn to the emergency department concerning worsening symptoms. Referrals: SCOOBY BULL PA-C [Primary Care Provider] - Follow up as needed
[2020-01-21 04:32] VITALS: BP 132/85
[2020-01-21] MEDS ORDERED: KETOROLAC TROMETHAMINE INJ/PF 30 MG/1 ML SDV IV ONE (04:45)
--- NOTE | 2020-01-21 05:48 | RADIOLOGY REPORT (SQ) ---
COMPLETED DATE/TME: 01/21/2020 04:45 EXAM: Pelvic ultrasound. INDICATION: Pelvic pain. TECHNIQUE: Grayscale and Doppler sonogram of the pelvis. Transabdominal technique was used. Transvaginal technique was used for better evaluation of the pelvic viscera. COMPARISON: CT dated 01/21/2020. FINDINGS: Uterus: Anteverted. Measures 7.5 x 3.6 x 3.6 cm. Endometrial stripe: Measures 0.7 cm which is not thickened. Right ovary: Not uniquely identified. Left ovary: Not uniquely identified. Other: Free fluid: None. IMPRESSION: Ovaries are not uniquely identified. No acute findings detected.
== END 2020-01-21 06:28 | disposition home or self-care (01) ==
LOC: ER 20:29
DX: R10.31 Right lower quadrant pain (principal); R10.819 Abdominal tenderness, unspecified site; R31.9 Hematuria, unspecified; D64.9 Anemia, unspecified; R91.1 Solitary pulmonary nodule; F17.200 Nicotine dependence, unspecified, uncomplicated; M79.7 Fibromyalgia; Z79.1 Long term (current) use of non-steroidal anti-inflammatories (NSAID); Z79.899 Other long term (current) drug therapy
CPT/HCPCS: 99285; 96374; 36415; 83690; 84703; 85025; 80053; 81001; 76830; 93976; 74177; J1885